=== PATIENT | male | born 1955 | race African-American/Black ===

== ENCOUNTER 2020-07-10 17:38 | Emergency (ER) | payer OTHER ==
[~2020-07-10] VITALS: Ht 175.3 cm; Wt 83.9 kg
[2020-07-10 19:51] LABS: Basophils # (auto) 0.1 10 ^3/uL (0-0.2); Eosinophils # (auto) 0.1 10 ^3/uL (0-0.8); Eosinophils % (auto) 1.4 % (0.0-7.0); Monocytes # (auto) 0.5 10 ^3/uL (0-1.3); Neutrophils # (auto) 5.3 10 ^3/uL (1.6-8.6); Red Cell Distribution Width 16.4 % (11.8-14.3)
[2020-07-10 19:52] LABS: Basophils % (auto) 1.2 % (0.0-2.0); Hematocrit 41.3 % (41.0-53.0); Hemoglobin 14.3 g/dL (13.5-17.5); Lymphocytes # (auto) 1.4 10 ^3/uL (0.4-5.4); Lymphocytes % (auto) 18.9 % (10.0-50.0); Mean Corpuscular Hemoglobin 35.7 pg (28.0-32.0); Mean Corpuscular Hgb Conc. 34.7 g/dL (32.0-36.0); Monocytes % (auto) 6.7 % (0.0-12.0); Neutrophils % (auto) 71.8 % (37.0-80.0); Platelet Count (auto) 119 10^3/uL (140-450); Red Blood Cells 4.01 10^6/uL (4.5-5.90); White Blood Cell 7.4 10^3/uL (4.4-10.8)
[2020-07-10 20:05] LABS: Albumin 3.7 g/dL (3.4-5.0); Anion Gap 5 (5-15); Blood Urea Nitrogen 42 mg/dL (7-18); Calcium 9.1 mg/dL (8.5-10.1); Carbon Dioxide 21 mmol/L (21-32); Chloride 116 mmol/L (98-107); Glucose 57 mg/dL (74-106); Potassium 4.3 mmol/L (3.5-5.1); Sodium 142 mmol/L (136-145)
[2020-07-10 20:13] LABS: Alanine Aminotransferase 77 U/L (16-61); Alkaline Phosphatase 180 U/L (45-117); Aspartate Aminotransferase 72 U/L (15-37); BUN/Creatinine Ratio 19.1; Bilirubin, Total 0.4 mg/dL (0.2-1.0); GFR African American 39 mL/min; GFR Non-African American 32 mL/min; Total Protein 8.4 g/dL (6.4-8.2)
[2020-07-11 00:48] VITALS: BP 183/83
== END 2020-07-11 01:00 | disposition home or self-care (01) ==
LOC: ER 17:38
DX: R07.89 Other chest pain (principal); E11.22 Type 2 diabetes mellitus with diabetic chronic kidney disease; N18.30 Chronic kidney disease, stage 3 unspecified; I10 Essential (primary) hypertension
CPT/HCPCS: 36415; 71045; 80053; 82962; 83880; 84443; 84484; 85025; 93005

== ENCOUNTER 2021-07-26 16:50 | Inpatient (IN) | payer OTHER ==
[~2021-07-26] VITALS: Ht 175.3 cm; Wt 76.1 kg
[2021-07-26] MEDS ORDERED: IOHEXOL 350 MG/ML 100ML IJ ONE (22:38)
[2021-07-27 00:44] LABS: Basophils # (auto) 0 10 ^3/uL (0-0.2); Basophils % (auto) 0.2 % (0.0-2.0); Eosinophils # (auto) 0.1 10 ^3/uL (0-0.8); Eosinophils % (auto) 0.6 % (0.0-7.0); Hematocrit 32.8 % (41.0-53.0); Hemoglobin 10.5 g/dL (13.5-17.5); Lymphocytes # (auto) 0.8 10 ^3/uL (0.4-5.4); Lymphocytes % (auto) 8.5 % (10.0-50.0); Mean Corpuscular Hemoglobin 31.3 pg (28.0-32.0); Mean Corpuscular Hgb Conc. 31.9 g/dL (32.0-36.0); Mean Corpuscular Volume 98.1 fL (80.0-100.0); Monocytes # (auto) 0.7 10 ^3/uL (0-1.3); Monocytes % (auto) 6.8 % (0.0-12.0); Neutrophils # (auto) 8.3 10 ^3/uL (1.6-8.6); Neutrophils % (auto) 83.9 % (37.0-80.0); Nucleated Red Blood Cells % 0.9 %; Red Blood Cells 3.35 10^6/uL (4.5-5.90)
[2021-07-27 00:45] LABS: Red Cell Distribution Width 20.1 % (11.8-14.3)
[2021-07-27 01:27] LABS: Albumin 3.1 g/dL (3.4-5.0); Calcium 9.9 mg/dL (8.5-10.1); Magnesium 2.6 mg/dL (1.6-2.6); Potassium 4.6 mmol/L (3.5-5.1)
[2021-07-27 01:33] LABS: Bilirubin, Total 0.4 mg/dL (0.2-1.0)
[2021-07-27] MEDS ORDERED: SODIUM CHLORIDE 0.9% 1,000 ML IV ONE (02:30)
[2021-07-27] MEDS ORDERED: ACETYLCYSTEINE ORAL for CIN 20%(200MG/ML) 4ML PO ONE (02:30)
[2021-07-27] MEDS ORDERED: IOHEXOL 350 MG/ML 100ML IJ ONE (02:31)
[2021-07-27] MEDS ORDERED: ACETYLCYSTEINE PO FOR APAP TOX 200 MG/ML ML ONE (03:39)
[2021-07-27 12:56] LABS: BUN/Creatinine Ratio 21.6; Calcium 9.6 mg/dL (8.5-10.1)
[2021-07-27 14:11] LABS: Potassium 5.6 mmol/L (3.5-5.1)
[2021-07-27] MEDS ORDERED: DEXTROSE (50%) 50ML SYRG IV PRN (14:30)
[2021-07-27] MEDS ORDERED: NITROGLYCERIN 0.4 MG SL TAB SL PRN (14:30)
[2021-07-27] MEDS ORDERED: SODIUM BICARBONATE 8.4 % INJ 50ML VIAL IV ONE (14:30)
[2021-07-27] MEDS ORDERED: MORPHINE SULFATE INJECTION 2 MG/ML SYRG IV PRN (14:30)
[2021-07-27] MEDS ORDERED: SOD CHL 0.45% 1,000 ML IV ONE (14:30)
[2021-07-27] MEDS ORDERED: INSULIN LANTUS (GLARGINE) 1 /0.01ml (100units/ml) SC ONE (14:30)
[2021-07-27] MEDS: SODIUM BICARBONATE 50ML VIAL 150 ML in D5W 5% 1,000 ML IV SCH ×2 (16:25→18:33)
[2021-07-27] MEDS: InsuLIN REG 1unit/0.01ml Soln (100units/ml) SC SCH ×2 (17:00→22:00)
[2021-07-27] MEDS: ACCU-CHEK COMFORT CURVE STRIP VI SCH ×2 (17:00→23:13)
[2021-07-27] MEDS ORDERED: hydrALAZINE HCL 10 MG TAB PO PRN (21:30)
[2021-07-27] MEDS ORDERED: IPRATROPIUM BROM 0.5 MG/2.5ML INH SOL NEB PRN (21:30)
[2021-07-27] MEDS ORDERED: AZITHROMYCIN 500MG/ 250ML 250 ML IV ONE (21:30)
[2021-07-27] MEDS ORDERED: cefTRIAXone 1GM/50ML D5W 50 ML IV ONE (21:30)
[2021-07-27] MEDS ORDERED: ALBUTEROL SULF 2.5 MG/0.5ML(0.5%) NEB SOLN NEB PRN (21:30)
[2021-07-27 22:00] VITALS: BP 149/80
[2021-07-27] MEDS: SODIUM CHLOR 0.9% PF (SALINE LOCK) 10ML VIAL/SYR IV SCH (23:13)
[2021-07-28] MEDS ORDERED: CHOL500033 PO (04:47)
[2021-07-28] MEDS ORDERED: BENZ100C97 PO (04:47)
[2021-07-28] MEDS ORDERED: ATO40T PO (04:47)
[2021-07-28] MEDS ORDERED: SODI650T PO (04:47)
[2021-07-28] MEDS ORDERED: MET50T PO (04:47)
[2021-07-28] MEDS ORDERED: HYDR1TAB97 PO (04:47)
[2021-07-28] MEDS ORDERED: CAPE1TAB11 PO (04:47)
[2021-07-28] MEDS ORDERED: DILT60TA PO (04:47)
[2021-07-28] MEDS ORDERED: CEFU250T68 PO (04:47)
[2021-07-28 06:00] VITALS: BP 145/81
[2021-07-28] MEDS: InsuLIN REG 1unit/0.01ml Soln (100units/ml) SC SCH ×4 (06:53→23:02)
[2021-07-28 09:00] VITALS: BP 154/88
[2021-07-28] MEDS: cefTRIAXone 1GM/50ML D5W 50 ML IV SCH (09:19)
[2021-07-28] MEDS ORDERED: AZITHROMYCIN 500MG/ 250ML 250 ML IV SCH (10:00)
[2021-07-28] MEDS ORDERED: PANTOPRAZOLE 40 MG TAB PO ONE (10:30)
[2021-07-28] MEDS ORDERED: predniSONE 20 MG TAB PO ONE (10:30)
[2021-07-28] MEDS ORDERED: guaiFENesin-CODEINE Liq 5 ML UD PO PRN (10:30)
[2021-07-28 11:21] LABS: Urine Bacteria NONE SEEN /hpf (None Seen); Urine Blood 1+ /uL (Negative); Urine Budding Yeast FEW /hpf (None Seen); Urine Specific Gravity 1.013 (1.001-1.035); Urine WBC 367 /hpf (0 - 3)
[2021-07-28 11:21] LABS: Potassium 3.8 mmol/L (3.5-5.1)
[2021-07-28 11:42] LABS: BUN/Creatinine Ratio 23.7; Calcium 8.9 mg/dL (8.5-10.1)
[2021-07-28 11:49] LABS: Alcohol, Urine < 3.0 mg/dL (0-10); Amphetamine Screen, Urine NEGATIVE (NEGATIVE); Barbiturate Scree,Urine NEGATIVE (NEGATIVE); Benzodiazephine Screen, Urine NEGATIVE (NEGATIVE); Cannabinoid Screen, Urine NEGATIVE (NEGATIVE); Cocaine Screen, Urine NEGATIVE (NEGATIVE); Opiate Scree,Urine NEGATIVE (NEGATIVE); Phencyclidine Screen, Urine NEGATIVE (NEGATIVE)
[2021-07-28] MEDS: ACCU-CHEK COMFORT CURVE STRIP VI SCH ×4 (12:09→22:00)
[2021-07-28 13:00] VITALS: BP 158/92
[2021-07-28] MEDS ORDERED: SODIUM BICARBONATE 50ML VIAL 150 ML in D5W 5% 1,000 ML IV SCH (13:15)
[2021-07-28] MEDS: IPRATROPIUM BROM 0.5 MG/2.5ML INH SOL NEB SCH ×2 (15:33→19:07)
[2021-07-28] MEDS: ALBUTEROL SULF 2.5 MG/0.5ML(0.5%) NEB SOLN NEB SCH ×2 (15:34→19:06)
[2021-07-28] MEDS: SODIUM CHLOR 0.9% PF (SALINE LOCK) 10ML VIAL/SYR IV SCH ×2 (16:01→22:00)
[2021-07-28] MEDS: dilTIAZem HCL 60 MG TAB PO SCH ×2 (16:29→23:01)
[2021-07-28 17:00] VITALS: BP 162/85
[2021-07-28] MEDS: BUDESONIDE (INHALATION) 0.5 MG/2 ML NEB NEB SCH (19:06)
[2021-07-28 21:43] LABS: Protein, Urine 80.8 mg/dL (0.0-11.9)
[2021-07-28 22:00] VITALS: BP 143/76
[2021-07-28] MEDS ORDERED: ATORVASTATIN 20 MG TAB PO SCH (22:00)
[2021-07-28] MEDS: METOPROLOL TARTRATE 50 MG TAB PO SCH (23:00)
[2021-07-29] MEDS: IPRATROPIUM BROM 0.5 MG/2.5ML INH SOL NEB SCH ×3 (00:08→13:19)
[2021-07-29] MEDS: ALBUTEROL SULF 2.5 MG/0.5ML(0.5%) NEB SOLN NEB SCH ×3 (00:08→13:19)
[2021-07-29 05:00] VITALS: BP 122/58
[2021-07-29] MEDS: SODIUM CHLOR 0.9% PF (SALINE LOCK) 10ML VIAL/SYR IV SCH ×2 (05:48→14:00)
[2021-07-29] MEDS: dilTIAZem HCL 60 MG TAB PO SCH ×2 (06:21→14:00)
[2021-07-29] MEDS: InsuLIN REG 1unit/0.01ml Soln (100units/ml) SC SCH ×3 (06:22→17:00)
[2021-07-29] MEDS: ACCU-CHEK COMFORT CURVE STRIP VI SCH ×3 (06:36→17:00)
[2021-07-29] MEDS: BUDESONIDE (INHALATION) 0.5 MG/2 ML NEB NEB SCH (06:36)
[2021-07-29 08:46] VITALS: BP 128/64
[2021-07-29 09:33] LABS: Potassium 3.8 mmol/L (3.5-5.1)
[2021-07-29] MEDS ORDERED: AZITHROMYCIN 250 MG TAB PO SCH (10:00)
[2021-07-29] MEDS ORDERED: PANTOPRAZOLE 40 MG TAB PO SCH (10:00)
[2021-07-29] MEDS ORDERED: CHOLECALCIFEROL (VITD3) 2,000 UNIT CAP/TAB PO SCH (10:00)
[2021-07-29] MEDS ORDERED: predniSONE 20 MG TAB PO SCH (10:00)
[2021-07-29] MEDS ORDERED: CAPECITABINE 500 MG PO SCH (10:00)
[2021-07-29] MEDS: cefTRIAXone 1GM/50ML D5W 50 ML IV SCH (10:35)
[2021-07-29] MEDS: METOPROLOL TARTRATE 50 MG TAB PO SCH (10:38)
[2021-07-29] MEDS ORDERED: AZITTAB PO (11:16)
[2021-07-29] MEDS ORDERED: ALBUAER3 IN (11:16)
[2021-07-29] MEDS ORDERED: AZIT250T9 PO (11:16)
[2021-07-29] MEDS ORDERED: PRED20TA2 PO (11:16)
[2021-07-29 12:43] VITALS: BP 128/64
[2021-07-29 13:00] VITALS: BP 136/66
== END 2021-07-29 18:30 | disposition home or self-care (01) | DRG 202 ==
LOC: ER 16:50 → EDBD 16:50 → TELE 07-27 14:18 → TELE-CENTR 07-27 21:11
PROVIDERS: ADMIT Internal Medicine; ATTEND Internal Medicine
DX: J20.9 Acute bronchitis, unspecified (principal); J90 Pleural effusion, not elsewhere classified; C85.90 Non-Hodgkin lymphoma, unspecified, unspecified site; N17.9 Acute kidney failure, unspecified; N13.30 Unspecified hydronephrosis; C50.921 Malignant neoplasm of unspecified site of right male breast; E87.5 Hyperkalemia; E78.5 Hyperlipidemia, unspecified; I12.9 Hypertensive chronic kidney disease with stage 1 through stage 4 chronic kidney disease, or unspecified chronic kidney disease; N18.31 Chronic kidney disease, stage 3a; Z20.822 Contact with and (suspected) exposure to COVID-19; E11.21 Type 2 diabetes mellitus with diabetic nephropathy; E11.22 Type 2 diabetes mellitus with diabetic chronic kidney disease; Z83.3 Family history of diabetes mellitus; Z85.118 Personal history of other malignant neoplasm of bronchus and lung; Z85.3 Personal history of malignant neoplasm of breast; Z85.51 Personal history of malignant neoplasm of bladder; Z90.6 Acquired absence of other parts of urinary tract
CPT/HCPCS: 36415; 71045; 71275; 76700; 80048; 80053; 80307; 81001; 82570; 82962; 83036; 83735; 83880; 84156; 84484; 85025; 85379; 87426; 93005; 94640; 96360; G0378; J0696; J1815